=== PATIENT | female | born 1995 | race Caucasian/White ===

== ENCOUNTER 2017-07-22 21:53 | Emergency (ER) | payer MEDICAID ==
[~2017-07-22] VITALS: Ht 162.6 cm; Wt 84.1 kg
[2017-07-22 21:54] VITALS: BP 124/74; TEMP 99.1
[2017-07-22] MEDS ORDERED: ZITHROMAX Z PA250 MG PO (23:34)
[2017-07-22 23:48] VITALS: PULSE 86
== END 2017-07-22 23:48 | disposition home or self-care (01) ==
LOC: COL.ER 21:53
DX: J40 Bronchitis, not specified as acute or chronic (principal); F17.210 Nicotine dependence, cigarettes, uncomplicated

== ENCOUNTER 2017-09-16 03:50 | Emergency (ER) | payer MEDICAID ==
[~2017-09-16] VITALS: Ht 162.6 cm; Wt 84.1 kg
[~2017-09-16 03:50] MED LIST: ZITHROMAX Z PA250 MG PO
[2017-09-16 03:53] VITALS: TEMP 98.7
[2017-09-16] MEDS ORDERED: AMOXICILLIN 50500 MG PO (07:10)
[2017-09-16] MEDS ORDERED: NORCO 325 MG-51 TAB PO (07:10)
[2017-09-16 07:26] VITALS: BP 123/80; PULSE 80
== END 2017-09-16 07:33 | disposition home or self-care (01) ==
LOC: COL.ER 03:50
DX: S01.81XA Laceration without foreign body of other part of head, initial encounter (principal); Z23 Encounter for immunization; Y04.2XXA Assault by strike against or bumped into by another person, initial encounter; Y92.59 Other trade areas as the place of occurrence of the external cause

== ENCOUNTER 2017-09-20 16:31 | Emergency (ER) | payer MEDICAID ==
[~2017-09-20] VITALS: Ht 162.6 cm; Wt 84.1 kg
[~2017-09-20 16:31] MED LIST changes: +AMOXICILLIN 50500 MG PO; +NORCO 325 MG-51 TAB PO
[2017-09-20 16:35] VITALS: BP 144/81; PULSE 76; TEMP 98.6
[2017-09-20] MEDS ORDERED: PREDNISONE10 MG PO (18:41)
== END 2017-09-20 18:54 | disposition home or self-care (01) ==
LOC: COL.ER 16:31
DX: H53.9 Unspecified visual disturbance (principal); S01.112D Laceration without foreign body of left eyelid and periocular area, subsequent encounter; S02.82XD Fracture of other specified skull and facial bones, left side, subsequent encounter for fracture with routine healing; F17.210 Nicotine dependence, cigarettes, uncomplicated; W50.0XXD Accidental hit or strike by another person, subsequent encounter
CPT/HCPCS: J7512

== ENCOUNTER 2019-05-01 23:42 | Emergency (ER) | payer MEDICAID ==
[~2019-05-01] VITALS: Ht 162.6 cm; Wt 68.2 kg
[~2019-05-01 23:42] MED LIST changes: +PREDNISONE10 MG PO
[2019-05-01 23:53] VITALS: BP 117/72; TEMP 98.2
[2019-05-02] MEDS ORDERED: AMOXICILLIN 50500 MG PO (01:06)
[2019-05-02] MEDS ORDERED: NORCO 325 MG-51 TAB PO (01:06)
[2019-05-02 01:33] VITALS: PULSE 77
== END 2019-05-02 01:33 | disposition home or self-care (01) ==
LOC: COL.ER 23:42
DX: K02.9 Dental caries, unspecified (principal); F17.210 Nicotine dependence, cigarettes, uncomplicated; F12.90 Cannabis use, unspecified, uncomplicated; Z90.89 Acquired absence of other organs

== ENCOUNTER 2019-06-03 12:42 | Emergency (ER) | payer MEDICAID ==
[~2019-06-03] VITALS: Ht 162.6 cm; Wt 68.2 kg
[2019-06-03 13:00] VITALS: BP 108/54
[2019-06-03] MEDS ORDERED: CEPHALEXIN500 M1 PO (13:38)
[2019-06-03 14:05] VITALS: PULSE 69; TEMP 97.4
== END 2019-06-03 14:05 | disposition home or self-care (01) ==
LOC: COL.ER 12:42
DX: J02.9 Acute pharyngitis, unspecified (principal); Z90.49 Acquired absence of other specified parts of digestive tract

== ENCOUNTER 2019-08-25 18:15 | Emergency (ER) | payer MEDICAID ==
[~2019-08-25] VITALS: Ht 162.6 cm; Wt 70.5 kg
[~2019-08-25 18:15] MED LIST changes: +CEPHALEXIN500 M1 PO
[2019-08-25 18:29] VITALS: TEMP 97.7
[2019-08-25 19:04] LABS: COLLECTION METHOD CLEAN CATCH
[2019-08-25 19:20] LABS: MUCOUS Present /lpf; PH 5 (5-8); URINE APPEARANCE Cloudy; URINE BACTERIA Rare /hpf; URINE BILIRUBIN Negative (NEGATIVE); URINE BLOOD 1+ (NEGATIVE); URINE COLOR Yellow; URINE GLUCOSE Negative (NEGATIVE); URINE KETONE Negative (NEGATIVE); URINE LEUKOCYTE ESTERASE 3+ (NEGATIVE); URINE NITRATE Negative (NEGATIVE); URINE PROTEIN(semi-quant) Negative (NEGATIVE); URINE RBC 20-50 /hpf
[2019-08-25 19:29] LABS: BASO % 0.4 % (0.0-2.0); EOS # 0.3 (0.0-0.7); EOS % 2.8 % (0-4.0); GRAN # 4.8 (1.4-6.5); GRAN % 44.1 % (42.2-75.2); HEMATOCRIT 40.4 % (37.0-47.0); HEMOGLOBIN 13.2 g/dl (12.5-16.0); LYMPH # 4.9 (1.2-3.4); LYMPH % 44.6 % (20.0-51.0); MEAN CELL VOLUME 91 fl (80.0-100.0); MEAN CORPUSCULAR HEMOGLOBIN 30 pg (27.0-31.0); MEAN CORPUSCULAR HGB CONC 33 g/dl (33.0-37.0); MONO # 0.9 (0.1-0.6); MONO % 7.9 % (1.7-9.3); PLATELET COUNT 336 K/mm3 (130-400); RED BLOOD COUNT 4.45 M/mm3 (4.10-5.30); REDCELL DISTRIBUTION WIDTH-CV 12.8 % (11.5-14.5)
[2019-08-25 19:30] LABS: ALANINE AMINOTRANSFERASE 12 U/L (9-52); ALBUMIN 5.1 gm/dL (3.5-5.0); ALKALINE PHOSPHATASE 45 U/L (50-136); ANION GAP 12 mmol/L (7-16); AST,SGOT 18 U/L (15-37); BILIRUBIN,TOTAL 0.6 mg/dL (0.0-1.0); BLOOD UREA NITROGEN 18 mg/dL (7-17); CALCIUM 9.7 mg/dL (8.4-10.2); CARBON DIOXIDE 26 mmol/L (22-30); CHLORIDE 104 mmol/L (98-107); CREATININE, serum 0.62 (0.52-1.25); GLUCOSE 87 mg/dL (74-106); LIPASE 66 U/L (23-300); POTASSIUM 3.7 mmol/L (3.4-5.0); SODIUM 143 mmol/L (137-145); TOTAL PROTEIN 8.5 gm/dL (6.4-8.2)
[2019-08-25 19:33] LABS: C-REACTIVE PROTEIN < 0.5 mg/dL (0.0-0.9)
[2019-08-25] MEDS ORDERED: ZOFRAN 4MG T4 MG/TAB PO (20:23)
[2019-08-25] MEDS ORDERED: OMNICEF 300MG300 MG PO (20:23)
[2019-08-25 21:23] VITALS: BP 104/63; PULSE 81
== END 2019-08-25 21:23 | disposition home or self-care (01) ==
LOC: COL.ER 18:15
PROVIDERS: Emergency Medicine
DX: N12 Tubulo-interstitial nephritis, not specified as acute or chronic (principal); N39.0 Urinary tract infection, site not specified
CPT/HCPCS: A4216; J0696; J1885; J2405; J3010; J7030; Q9967